=== PATIENT | female | born 1965 | race Caucasian/White ===

== ENCOUNTER → 2017-07-02 14:21 | Outpatient (REF) | payer OTHER, SELFPAY ==
[2017-07-02 18:15] LABS: Basophils # 0.1 K/mm3 (0-0.2); Basophils % 0.6 % (0.1-2.0); Eosinophils # 0.2 K/mm3 (0.0-0.4); Eosinophils % 1.4 % (0.1-12.0); Hematocrit 46.9 % (37.0-47.0); Lymphocytes # 2.9 K/mm3 (0.7-4.5); Lymphocytes % 23.4 K/mm3 (10-50); Mean Corpuscular HGB Conc 29.7 g/dL (31.8-35.4); Mean Corpuscular Hemoglobin 24.9 pg (27.0-31.2); Mean Corpuscular Volume 83.8 fl (81-99); Mean Platelet Volume 8.2 fl (7.4-10.4); Monocytes # 0.7 K/mm3 (0.1-1.0); Monocytes % 5.6 % (1.7-9.3); Neutrophils # 8.6 K/mm3 (1.8-7.8); Platelet Count 478 K/mm3 (142-424); White Blood Count 12.5 K/mm3 (4.8-10.8)
[2017-07-02 19:17] LABS: Alanine Aminotransferase 53 U/L (12-78); Albumin Level 3.3 gm/dL (3.4-5.0); Alkaline Phosphatase 122 U/L (46-116); Anion Gap 10.6 mEq/L (5-15); Aspartate Amino Transferase 27 U/L (15-37); Bilirubin,Total 0.3 mg/dL (0.2-1.0); Blood Urea Nitrogen 10 mg/dL (7-18); Calcium 9.3 mg/dL (8.5-10.1); Carbon Dioxide 31 mmol/L (21.0-32.0); Chloride 103 mmol/L (98-107); Chol/HDL Ratio 5.1 (1-3.5); Cholesterol 185 mg/dL (140-200); Creatinine,Serum 0.76 mg/dL (0.55-1.02); Estimated Glomerular Filt Rate 81 ml/min (>60); Free T4 (Free Thyroxine) 0.92 ng/dl (0.76-1.46); GFR (African American) 98 ML/MIN (>60); Globulin 3.4 gm/dl (1.3-3.2); Glucose 102 mg/dL (74-106); HDL Cholesterol 36 mg/dL (29-89); LDL Cholesterol 122 mg/dL (0-130); Potassium 4.6 mmoL/L (3.5-5.1); Sodium 140 mmol/L (136-145); Total Protein,Serum 6.7 gm/dL (6.4-8.2); Triglycerides 133 mg/dL (30-200); VLDL Cholesterol 27 mg/dL (0-40)
== END ==
LOC: LAB 14:21
PROVIDERS: Visit Provider Emergency Medicine
DX: R60.0 Localized edema (principal)
CPT/HCPCS: 80053; 80061; 82652; 84439; 84443; 85025

== ENCOUNTER → 2017-07-10 13:45 | Outpatient (CLI) | payer OTHER, SELFPAY ==
[2017-07-10 16:28] LABS: Ferritin 19 ng/mL (8-388)
[2017-07-12 08:28] LABS: Iron 32 ug/dL (27-159); UIBC 357 ug/dL (131-425)
[2017-07-12 13:48] LABS: Iron Saturation 8 % (15-55)
== END ==
PROVIDERS: Physician Assistant; Visit Provider Nurse Practitioner Family
DX: D64.9 Anemia, unspecified (principal)
CPT/HCPCS: 36415; 82728; 83550

== ENCOUNTER → 2017-07-17 13:03 | Outpatient (CLI) | payer OTHER, SELFPAY ==
--- NOTE | 2017-07-17 13:06 | CA_ITS ---
PROCEDURE: 2-D M-mode and color Doppler study INDICATIONS FOR THE TEST: Chest pain COPD+ Heart Murmur Tobacco Smoking+ Palpitations Fatigue Syncope Edema+ Hypertension+Diabetes Mellitus Rheumatic Fever SOB LUND Obesity+Hyperlipidemia Family History HD Additional History ROSA, CVA 2014 PATIENT INFORMATION HEIGHT: 65 WEIGHT:257 GENDER: Female B/P:144/84 2-D/M-MODE INTERPRETATION: 2-D MEASUREMENTS OBSERVED VALUES IN CMS Right Ventricular Dimension (RVDd) 3.1 Interventricular Septum (Thickness)(IVsd) 1.7 Left Ventricular Internal Dimensions(LVIDd) 4.5 Left Ventricular Posterior Wall (Thickness)(LVPWd) 1.3 Aortic Root 2.9 Aortic Cusp Separation 2.5 Left Atrial Dimensions (LAD) 5.0 2D 1. Left atrium is mildly enlarged, left ventricle is normal size, mild concentric left ventricular hypertrophy, visually estimated ejection fraction 55% with no obvious regional wall motion abnormality. 2. The right atrium and right ventricle are mildly enlarged with normal contractility. 3. The aortic valve is minimally thickened and fibrosed. 4. The mitral and tricuspid valve are grossly normal. 5. The pulmonic valve is poorly visualized. 6. No significant pericardial effusion noted. DOPPLER INTERROGATION: Doppler interrogation of the aortic, mitral and tricuspid valvular presence of mild mitral and tricuspid regurgitation, tricuspid and jet velocity is insufficient for calculation of the right ventricular systolic pressure, grade 1 diastolic dysfunction seen with tissue Doppler evidence of raised left atrial pressure, mild aortic insufficiency is also seen. CONCLUSION: 1. Mildly enlarged left atrium, normal left ventricular size, mild concentric left ventricular hypertrophy, visually estimated ejection fraction 55% with no obvious regional wall motion abnormality, grade 1 diastolic dysfunction seen with tissue Doppler evidence of raised left atrial pressure. 2. Mildly enlarged right ventricle with normal contractility. 3. Mild aortic, mild mitral and tricuspid regurgitation 4. No significant pericardial effusion noted.
== END ==
PROVIDERS: Family Provider Emergency Medicine; PCP Emergency Medicine; Visit Provider Emergency Medicine
DX: R60.0 Localized edema (principal); R01.1 Cardiac murmur, unspecified
CPT/HCPCS: 93306

== ENCOUNTER → 2017-07-25 08:00 | Outpatient (CLI) | payer OTHER, SELFPAY ==
[2017-07-25 09:10] VITALS: PULSE 84; PULSE 87
== END ==
PROVIDERS: Family Provider Emergency Medicine; PCP Emergency Medicine; Visit Provider Emergency Medicine
DX: R06.02 Shortness of breath (principal)
CPT/HCPCS: 94060; 94640